=== PATIENT | female | born 1955 | race Caucasian/White ===

== ENCOUNTER 2025-11-13 06:51 | Day surgery (SDC) | payer OTHER, SELFPAY ==
--- NOTE | 2025-11-05 08:18 | HPS.HSE ---
Family Physician
-
Family Physician: NO INTERVIEW UNKNOWN
Chief Complaint
-
Paroxysmal atrial fibrillation.
History of Present Illness
The patient is a 70-year-old female presenting today for paroxysmal atrial fibrillation. She was diagnosed with this arrhythmia rather remotely. She does report a wide variety of symptoms associated with her arrhythmia, which includes
shortness of breath, palpitations, lightheadedness, and dizziness. She was recently hospitalized at [facility] due to her atrial fibrillation. Review of EKGs during that hospitalization also reveal typical appearing atrial flutter. She
is on current pharmacological therapy with Metoprolol Tartrate. Of note, medical therapy has been limited due to significant chronic fatigue and sinus bradycardia at baseline. She had been compliant with Eliquis for oral anticoagulation. Given her
significant symptoms, it is recommended that she proceed with pulmonary vein isolation at this time for further arrhythmia management. Prior to pulmonary vein isolation, she will first undergo a transesophageal echocardiogram to definitively rule
out a left atrial appendage thrombus. She denies any current complaints today such as chest pain, shortness of breath at rest, nausea, vomiting, diarrhea, cough, sore throat, or fever.
Medical History
Past Medical History
Past Medical History: Reports Other
Additional Past Medical History:
1. Paroxysmal atrial fibrillation and typical atrial flutter, pharmacological therapy with Metoprolol Tartrate and oral anticoagulation with Eliquis.
2. Nonsustained supraventricular tachycardia.
3. Sinus bradycardia, asymptomatic.
4. Hypertension.
5. Hyperlipidemia.
6. Cardiomyopathy, preserved ejection fraction.
7. Obstructive sleep apnea, compliant with CPAP.
8. GERD.
9. Colon polyps.
10. Nephrolithiasis.
11. Irritable bowel syndrome with constipation.
12. Burning mouth syndrome, on Gabapentin.
13. Osteoarthritis.
14. Thyroid nodules.
15. Right-sided breast cancer, 2015, status post right lumpectomy with lymph node dissection, radiation, and hormonal therapy.
16. Skin cancer status post excision.
17. Chronic fatigue.
18. Obesity, BMI 32.7.
19. History of tobacco abuse.
Past Surgical History: Reports Other
Additional Past Surgical History:
1. Right lumpectomy with lymph node dissection.
2. Appendectomy.
3. Cardiac catheterization.
4. [place] teeth extraction.
5. Colonoscopy x3.
6. Endoscopy.
Social History
Tobacco: Former Smoker (She is a former one pack per day cigarette smoker who quit tobacco products altogether approximately five years ago.)
Alcohol: Other (Rare use reported. )
Personal:
Living: Other (The patient lives in a split-level home with her spouse. )
Family History
Family History: Not pertinent
Allergies / Home Medications
Allergy/Medication List:
HOME MEDICATIONS:
1. Tylenol Arthritis 650 mg p.o. daily as needed.
2. Apixaban 5 mg p.o. twice a day.
3. Clobetasol one application topical daily as needed.
4. Zetia 10 mg p.o. at bedtime.
5. Fluocinonide one application daily as needed.
6. Fluticasone two sprays intranasal daily.
7. Gabapentin 200 mg p.o. twice a day.
8. Metoprolol Tartrate 25 mg p.o. twice a day.
9. Omeprazole 40 mg p.o. daily.
10. Probiotic two tablets p.o. daily.
11. Rosuvastatin 10 mg p.o. at bedtime.
ALLERGIES: No known allergies.
Review of Systems
-
A 12 point ROS was completed and negative except as noted: Yes
Physical Exam
Vital Signs
Blood pressure 180/74, repeat blood pressure 176/80, heart rate 40, respirations 18, pulse ox 96% on room air.
Height 5 feet 5.5 inches, weight 90.5 kg, BMI 32.7.
Physical Exam
General: Well Developed, Well Nourished and No Apparent Distress
HEENT: NormoCephalic, Moist mucous membranes, Atraumatic and PERRLA
Respiratory: Clear
Cardiac: Bradycardia
GI: Soft, Non Tender, Non Distended and Other (Obese. )
Musculoskeletal: No Edema and Normal Gait & Station
Skin: Warm and Dry
Neuro: AO x 3 and Nonfocal/grossly intact
Laboratory Results
-
DIAGNOSTIC STUDIES as of 10/31/2025; White blood cell count 6.3, hemoglobin 13.4, platelet count 258,000. PT 15.8, INR 1.28. Sodium 138, potassium 4.3, BUN 14, creatinine 0.6, glucose 86, calcium 9.2, magnesium 2.0. AST 22, ALT 25, albumin 4.3.
Blood type A positive.
EKG 10/31/2025: Marked sinus bradycardia. Minimal voltage criteria for LVH, may be normal variant. Nonspecific ST abnormality.
Chest CT 11/01/2025: Normal, conventional pulmonary venous anatomy. Incomplete filling of the left atrial appendage.
Echocardiogram 05/27/2023: Ejection fraction is 60%. There is a mild left atrial enlargement. No significant valvular disease is detected.
Nuclear stress test 11/04/2022: Normal perfusion imaging. The ejection fraction is 62%. This is a moderate risk study due to the pharmacological agent use. Compared to the prior study performed on 02/14/2013, there is no significant change.
Impression/Plan
-
IMPRESSION/PLAN:
1. Paroxysmal atrial fibrillation: The patient is in need of pulmonary vein isolation for further arrhythmia management; however, she will undergo a transesophageal echocardiogram first to definitively rule out a left atrial appendage thrombus. This
procedure is scheduled for 11/13/[address] Tanner Castillo. The benefits and risks of the procedure have been explained to the patient. The patient understands these risks and wishes to proceed.
== END 2025-11-13 11:21 | disposition home or self-care (01) ==
LOC: CATH 06:51
PROVIDERS: ATTENDING PHYSICIAN Internal Medicine Cardiovascular Disease; FAMILY PHYSICIAN Internal Medicine; OTHER PHYSICIAN Internal Medicine Cardiovascular Disease
DX: I48.0 Paroxysmal atrial fibrillation (principal); R06.02 Shortness of breath; R00.2 Palpitations; E66.9 Obesity, unspecified; E78.5 Hyperlipidemia, unspecified; G47.33 Obstructive sleep apnea (adult) (pediatric); I08.3 Combined rheumatic disorders of mitral, aortic and tricuspid valves; I10 Essential (primary) hypertension; I42.9 Cardiomyopathy, unspecified; K58.9 Irritable bowel syndrome, unspecified; M19.90 Unspecified osteoarthritis, unspecified site; R53.82 Chronic fatigue, unspecified; Z68.32 Body mass index [BMI] 32.0-32.9, adult; Z87.891 Personal history of nicotine dependence; Z79.01 Long term (current) use of anticoagulants; Z79.899 Other long term (current) drug therapy; Z85.3 Personal history of malignant neoplasm of breast; Z85.828 Personal history of other malignant neoplasm of skin; Z86.0100 Personal history of colon polyps, unspecified; Z87.442 Personal history of urinary calculi; Z90.49 Acquired absence of other specified parts of digestive tract; I08.8 Other rheumatic multiple valve diseases
CPT/HCPCS: 93312; 93320; 93325

== ENCOUNTER 2025-11-14 05:55 | Day surgery (SDC) | payer OTHER, SELFPAY ==
[2025-10-31 13:01] VITALS: BMI 32.7
[2025-11-14] VITALS (10 sets, daily range): BP systolic 100–142; BP diastolic 52–82; BMI 31.5
[2025-11-14 08:43] LABS: ACT-LR - POC 256 Seconds (116-155)
[2025-11-14 09:04] LABS: ACT-LR - POC 390 Seconds (116-155)
--- NOTE | 2025-11-14 09:28 | ITS.CL.ABL ---
Driver Guide - Ablation
Ablation
Procedure Report:
ELECTROPHYSIOLOGY ABLATION STUDY
DATE:: November 14, 2025�����������������������������REFERRING: Dr. Crow Cardenas
INDICATION: Paroxysmal supraventricular tachycardia in the form of atrial fibrillation.��Also with documented typical atrial flutter associated with 6 to 10-second ventricular pause which was while on IV Cardizem. She has no clinical presyncope or
syncope. She does have fatigue on low-dose metoprolol.
HISTORY: See H and P.��As above
ANTIARRHYTHMIC DRUG: Metoprolol
PRE-PROCEDURE DAMIEN: No intracardiac thrombus.
PRESENTING RHYTHM: Sinus bradycardia
'TIME-OUT':��called and confirmed.
SEDATION/ANESTHESIA:��provided via the anesthesia department using general anesthesia (LMA).
INTRAVENOUS/ARTERIAL ACCESS:
Right femoral venous - 8Fr
Left femoral venous - 8 Fr, 6 Fr
[id number] bilaterally
Ultrasound guidance for bilateral femoral vein access was utilized by me to obtain access with demonstration of normal anatomy
CHADS-VASC Score:
HAS-Bled Score
PROCEDURE:
1.��A decapolar CS catheter was placed within the CS for mapping and pacing.��This was also used as the reference catheter for the 3-D map.
2. The intracardiac ultrasound catheter was positioned in the RA to identify the FO for targeting of transseptal puncture, assist��in identification of the pulmonary vein ostia, monitoring pre and post ablation pulmonary vein flow velocities,
monitoring for 'bubble' formation during RF application as a sign of thermal injury,��and to monitor for pericardial effusion during mapping and ablation procedure.���Left atrial size, LV ejection fraction, and pulmonary vein flows were monitored
pre and post ablation procedure. The other valves were inspected and found to be free of significant regurgitation or stenosis.
3.��Half of the calculated heparin bolus was administered prior to the first transeptal puncture.��Transseptal puncture was performed to diagnose RA and LA pressure so that safetey of LA mapping and ablation could be further assessed, and to access
the left atrium and pulmonary veins for mapping and ablation.��This entailed advancing an 8 Fr SL-1 sheath with dilator into the superior vena cava and withdrawing both (monitoring intracardiac ultrasound, fluoroscopy and tip pressure) with the tip
oriented toward the atrial septum.��The fossa ovalis was engaged (indicated by sudden displacement of the sheath tip as well as tenting of the fossa seen on intracardiac ultrasound).��Left atrial access required a pass with the [place] needle
extended.��Left atrial catheter position was confirmed by pressure monitoring (RA mean pressure [ ] mm Hg and LA mean presure [ ] mm Hg), LA saturation ( [ ] %),��as well as fluoroscopy.��The sheath was advanced over the dilator and positioned in
the left atrium.��This procedure was repeated for the Agilis sheath.��The remainder of the calculated heparin bolus was administered and heparin was
infused to maintain ACT at 300 -350 seconds throughout the case.
4.��RA pacing was performed via the proximal decapolar poles and LA pacing was performed via the distal decapolr poles.
5. A quadrapolar catheter was first positioned at the His position for His Bundle recording which was tagged via the 3-D [employer], and then passed to the RVA for RV pacing and recording.
6. The 9 mm lattice was placed in each of the LIPV, LSPV, RSPV and the RIPV.��
7.��Next, a 3-D map was created with the [employer] system.
8. The 9 mm lattice delivered PFA lesions and wide circumferential ablation around the left veins and right veins with additional lesions on the appendage side of the ligament of Rishabh. We then placed a roofline and floor line connecting the
wide circumferential lesion set for a posterior wall box lesion set rendering all 4 pulmonary veins with entrance and exit block as well as the roof posterior wall and floor of the left atrium with entrance and exit block. Post ablation EP study
did not induce any tachyarrhythmia.
9. An RF line was also placed at the IVC-TVA isthmus to interrupt the potential typical atrial flutter circuit.��At the end of RF at this site, pacing from the lateral side of the line and the medial side of the line was performed to evaluate for
bidirectional block with intra isthmus conduction time of 150 ms bidirectionally. Radiofrequency energy at 400 W for 4 seconds was given at the tricuspid annulus with 2 lesions sequentially and then from the mid isthmus back to the IVC pulsed field
energy. During the last PFA delivery at the mid isthmus we noted transient ST elevations in 2 3 and aVF without accompanying wall motion abnormality on intracardiac echo lasting approximately 2-3 minutes. 2 sequential doses of 100 mcg of
nitroglycerin were given with complete resolution of the ST-T changes. Normal wall motion the right ventricle and left ventricle were seen post procedure on intracardiac ultrasound and recorded. When the patient was weaned from anesthesia and
extubated she remarked that she was asymptomatic from a chest perspective.
TOTAL FLOURO TIME: 8.3 minutes
TOTAL RF DURATION: 1 minutes
REVERSAL OF HEPARIN: 40 mg of protamine, slow IV administration
COMPLICATIONS:
None
Intracardiac US shows no pericardial effusion post ablation.
SUMMARY:��
Complex left atrial mapping and ablation.
Isolation of all 4 pulmonary veins as well as the left atrial posterior wall. CTI flutter ablation with persistent bidirectional block.
RECOMMENDATIONS:
1. Ambulate in 4 hours
2. Resume anticoagulation
3.��Discontinue metoprolol
4.��Consider same-day discharge if she meets same-day discharge parameters
Copy to: Dr. Crow Cardenas
--- NOTE | 2025-11-14 13:36 | W.PN.UPDATE ---
Update Note
Progress Note Update
70 yo WF s/p PVI (same day). She denies cp, sob, carlitos diet, voiding, EKG SR, b/l groins c/d/i no HT. She will resume Eliquis tonight. We will stop her metoprolol for bradycardia and fatigue and use only as pill in pocket. Activity restrictions
reviewed. She will f/u Dr. Cardenas in 3 mo. She is for d/c home after 2pm.
== END 2025-11-14 14:35 | disposition home or self-care (01) ==
LOC: CATH 05:55
PROVIDERS: ATTENDING PHYSICIAN Internal Medicine Cardiovascular Disease; FAMILY PHYSICIAN Internal Medicine; OTHER PHYSICIAN Internal Medicine Cardiovascular Disease
DX: I48.0 Paroxysmal atrial fibrillation (principal); I48.3 Typical atrial flutter; I10 Essential (primary) hypertension; E78.5 Hyperlipidemia, unspecified; I42.9 Cardiomyopathy, unspecified; G47.33 Obstructive sleep apnea (adult) (pediatric); E66.9 Obesity, unspecified; I47.10 Supraventricular tachycardia, unspecified; K58.9 Irritable bowel syndrome, unspecified; M19.90 Unspecified osteoarthritis, unspecified site; R53.82 Chronic fatigue, unspecified; Z68.32 Body mass index [BMI] 32.0-32.9, adult; Z87.891 Personal history of nicotine dependence; Z79.01 Long term (current) use of anticoagulants; Z79.899 Other long term (current) drug therapy; Z85.3 Personal history of malignant neoplasm of breast; Z85.828 Personal history of other malignant neoplasm of skin; Z86.0100 Personal history of colon polyps, unspecified; Z87.442 Personal history of urinary calculi; Z90.49 Acquired absence of other specified parts of digestive tract
CPT/HCPCS: C1730; C1733; C1766; C1892; C1759; C1894; 85347; 93005; 93655; 93656; 93657